=== PATIENT | female | born 1975 | race Caucasian/White ===

== ENCOUNTER 2020-05-22 02:04 | Emergency (ER) | payer OTHER ==
[~2020-05-22] VITALS: Ht 165.1 cm; Wt 122.0 kg
[2020-05-22] MEDS ORDERED: ACETAMINOPHEN 325MG TABLET PO ONE (02:30)
[2020-05-22 02:41] VITALS: BP 140/70
== END 2020-05-22 03:43 | disposition home or self-care (01) ==
LOC: ER 02:04
DX: R05 Cough (principal); J45.909 Unspecified asthma, uncomplicated
CPT/HCPCS: 71045; 81025; 93005; 99283; C9803; U0003